=== PATIENT | female | born 1980 | race Native Hawaiian/Other Pacific Islander ===

== ENCOUNTER → 2021-03-08 | Outpatient (CLI) | payer BC ==
--- NOTE | 2021-03-08 14:07 | Diagnostic Imaging Report ---
INDICATION: Patient has a history of known breast cyst from outside studies however at this time we do not have comparisons available. She has some bilateral breast nodularity that she reports has been long-standing. The breasts are heterogeneously dense which can limit mammographic sensitivity. Laterally in the left breast corresponding to palpable fullness is a spherical circumscribed nodule left. Right breast shows a likely circumscribed nodule posterior to the nipple. Cyst at these levels were described on outside reports however, given the lack of previous for direct comparison we are proceeding with targeted bilateral breast ultrasound as further evaluation to exclude any new solid masses. Study currently pending and will provide final BI-RADS disposition after that exams completion. IMPRESSION: Heterogeneously dense parenchymal pattern. Bilateral breast nodules mammographically indeterminate. Ultrasound correlation currently pending and will be dictated separately BI-RADS Category 0 bilateral breast ultrasound pending ACR BI-RADS Category 0: Incomplete. (Needs additional imaging evaluation). Result letter will be mailed to the patient. Note: At least 10% of breast cancer is not imaged by mammography. Dictated by: Dictated on workstation # [id number]
--- NOTE | 2021-03-08 14:08 | Diagnostic Imaging Report ---
INDICATION: Bilateral breast nodules palpable and mammographically apparent in this patient with dense parenchymal pattern. Outside reports showed known bilateral breast cysts however the images themselves were not available for direct review therefore we did proceed with targeted breast ultrasound. FINDINGS: Corresponding to palpable and mammographic abnormalities are multiple bilateral simple appearing breast cysts. On the left, 5 cm from the nipple and discretely palpable, is a 1 cm anechoic benign cyst. There are more numerous cysts in the retroareolar and central portion of the right breast. The largest bilobed cyst or adjacent cysts and aggregate measured a long axis dimension of 3 cm. The appearance today is as described on outside studies. No solid vascularized or suspicious breast lesion. IMPRESSION: 1. Benign anechoic simple breast cysts account for palpable and mammographic abnormalities no suspicious finding. 2. Assuming the absence of adverse interval clinical change, this patient can be returned to routine bilateral screening due next in one year's time. BI-RADS Category 2 ACR BI-RADS Category 2: Benign findings. Result letter will be mailed to the patient. Note: At least 10% of breast cancer is not imaged by mammography. Dictated by: Dictated on workstation # [id number]
== END ==
LOC: RAD 12:33
PROVIDERS: ATTEND Family Medicine
DX: N60.01 Solitary cyst of right breast (principal); N60.02 Solitary cyst of left breast
CPT/HCPCS: 76642; 77066; G0279; 77062

== ENCOUNTER → 2022-03-03 | Outpatient (CLI) | payer BC, MEDICAID ==
--- NOTE | 2022-03-03 11:33 | Diagnostic Imaging Report ---
INDICATION: Bilateral breast cysts. CORRELATION is made with prior mammograms 03/08/2021 and 11/01/2019. 2-D and 3-D bilateral screening mammography was performed with CAD. Both breasts are heterogeneously dense, limiting the sensitivity of mammography. Circumscribed densities in both breasts show waxing and waning consistent with cysts. No spiculated mass or malignant-appearing microcalcifications are seen. There are benign calcifications present. Axillae are unremarkable. IMPRESSION: BI-RADS Category 2 No mammographic features suspicious for malignancy are identified. ACR BI-RADS Category 2: Benign findings. Result letter will be mailed to the patient. Note: At least 10% of breast cancer is not imaged by mammography. Dictated by: Dictated on workstation # [id number]
== END ==
LOC: RAD 08:58
PROVIDERS: ATTEND Family Medicine
DX: N60.01 Solitary cyst of right breast (principal); N60.02 Solitary cyst of left breast
CPT/HCPCS: 77066; G0279; 77062

== ENCOUNTER → 2022-09-08 | Outpatient (CLI) | payer MEDICAID ==
--- NOTE | 2022-09-08 14:41 | Diagnostic Imaging Report ---
HISTORY: Lymphadenopathy. COMPARISON: None. TECHNIQUE: Ultrasound of the soft tissues in the neck, bilaterally. FINDINGS: Near the palpable abnormality in the left neck there is a small lymph node measuring 3 mm in short axis with a normal fatty hilum. No other mass or fluid collection is seen. Imaged portions of the right neck appear normal. IMPRESSION: Palpable abnormality in the left neck corresponds with a small normal-appearing lymph node. Dictated by: Dictated on workstation # [id number]
== END ==
LOC: RAD 09:46
PROVIDERS: ATTEND Nurse Practitioner Family
DX: R59.1 Generalized enlarged lymph nodes (principal)
CPT/HCPCS: 76536; 87070